=== PATIENT | female | born 1980 | race Caucasian/White ===

== ENCOUNTER 2020-02-07 13:29 | Observation (INO) ==
--- NOTE | 2020-02-07 14:29 | ERNOTE ---
Date of Service: 02/07/20 Time Seen by Provider: 02/07/20 14:08 Stated Complaint: uri,cough, been exposed, chest nata Presenting Symptoms:: cough Source: patient, RN notes reviewed, past records Exam Limitations: no limitations Immunizations: IMMUNIZATION HX Immunizations Up to Date Yes History of Influenza Vaccine No Hx Pneumococcal Vaccination No Allergies/Adverse Reactions: Allergies No Known Allergies Allergy (Verified 02/07/20 14:02) Home Medications: HOME MEDICATIONS triamcinolone acetonide 0.1 % topical cream 1 applic TP BID PRN 03/07/18 [Last Taken Unknown] montelukast 10 mg tablet 10 mg PO HS #30 tab 08/28/18 [Last Taken Unknown] albuterol sulfate 90 mcg/actuation aerosol inhaler See Rx Instructions .ROUTE .COMPLEX #8.5 unknown measurement unit code: gram 12/26/19 [Last Taken Unknown] norethindrone (contraceptive) 0.35 mg tablet 0.35 mg PO DAILY #28 tab 01/16/20 [Last Taken Unknown] omeprazole 40 mg capsule,delayed release 40 mg PO DAILY #30 cap 01/21/20 [Last Taken Unknown] propranolol 60 mg capsule,24 hr,extended release 60 mg PO DAILY #30 cap 01/21/20 [Last Taken Unknown] benzonatate 100 mg capsule 100 mg PO TID 10 Days #30 cap 01/31/20 [Last Taken Unknown] fluconazole 150 mg tablet 150 mg PO Q3D 0 Days #2 tab 01/31/20 [Last Taken Unknown] azithromycin 250 mg tablet See Rx Instructions PO .COMPLEX #6 tab 02/06/20 [Last Taken Unknown] fluconazole 150 mg tablet 150 mg PO DAILY 0 Days #1 tab 02/06/20 [Last Taken Unknown] - History of Present Ilness Narrative: Kalpana is a 39-year-old female who presents to the emergency department with a cough and shortness of breath that began over a week ago. She was seen in the clinic and prescribed steroids and Tessalon Perles. Her symptoms continued to not improve and she contacted the clinic yesterday. She was started on a Z-Peter. She has also been using her nebulizer at home without improvement. A household member has tested positive for COVID-19. Her LMP was 02/03/2020. She also reports having vomiting and diarrhea. The vomiting has mostly been associated with coughing but she reports that the diarrhea has been very frequent. She has not taken anything for diarrhea. Timing: constant, getting worse Frequency/Possible Cause: Reports: illness exposure Modifying Factors - Improves: Reports: nothing. Denies: antibiotics, albuterol, rest Modifying Factors - Worsens: Reports: activity, coughing Associated Symptoms: Reports: cough, shortness of breath, nasal congestion, nasal drainage, headache, sore throat, muscle aches, fever/chills Prior Treatment: Reports: recently seen, currently on antibiotics Review of Systems - Review of Systems Constitutional: Present: fever, chills, fatigue, malaise EYE: Absent: eye pain, eye discharge ENT: Present: nose congestion, nasal drainage, sore throat. Absent: ear pain Respiratory: Present: shortness of breath, cough, wheezing Cardiology: Absent: chest pain, syncope Gastrointestinal/Abdominal: Present: nausea, vomiting, diarrhea. Absent: abdominal pain Genitourinary: Absent: dysuria, hematuria Musculoskeletal: Present: muscle pain. Absent: joint pain Skin: Absent: rash, lesions Neurological: Present: headache. Absent: dizziness/light-headedness Endocrine: Present: no symptoms reported Hematologic/Lymphatic: Absent: easy bruising, easy bleeding Psych: Present: no symptoms reported Medical History (Last Reviewed 02/07/20 @ 14:28 by Latonia Wright NP) ADHD Onset Date: ~07/23/16 Abnormal Pap smear of cervix Onset Date: Unknown several- 3 in [id number] conization 1998-colposcopy x3 Acute hearing loss Onset Date: ~02/05/14 post traumatic left ear Acute otitis media Onset Date: ~02/05/14 Alcohol abuse Onset Date: ~08/21/13 1/2 bottle captvickie shelton twice weekly 08/2013 Asthma Onset Date: ~03/27/13 moderate persistent Bacterial vaginitis Onset Date: ~07/02/14 Bacterial vaginosis Onset Date: ~04/24/13 Breast lump Onset Date: ~11/27/13 Cellulitis of foot Onset Date: ~10/15/17 left foot and lower extremity Depressed Onset Date: Unknown Folliculitis Onset Date: ~03/15/17 GERD (gastroesophageal reflux disease) Onset Date: ~07/23/16 Genital warts Onset Date: Unknown Insomnia Onset Date: ~03/27/13 Mastitis Onset Date: ~11/27/13 TMJ (dislocation of temporomandibular joint) Onset Date: ~03/15/17 Tachycardia Onset Date: ~07/23/16 Tobacco abuse Onset Date: 03/27/13 Tobacco dependence Onset Date: Unknown Vertigo Onset Date: 02/05/14 Yeast infection Onset Date: ~02/14/15 recurrent per pt. report Yeast vaginitis Onset Date: 02/05/14 Surgical History: Surgical History (Last Reviewed 02/07/20 @ 14:28 by Latonia Wright NP) Elective Onset Date: Unknown x3 H/O breast biopsy Onset Date: 12/10/13 right breast. Tinguely-retroareolar abscess with chronic inflammation and fibrosis History of colposcopy Onset Date: 01/28/99 01/28/1999, 04/21/2009, 2003 History of conization of cervix Onset Date: 02/17/99 History of incision and drainage Onset Date: ~2011 left breast History of tubal ligation Onset Date: ~2007 Family History: Family History (Last Reviewed 02/07/20 @ 14:28 by Latonia Wright NP) Sister Brain tumor removed at age 8 History of open heart surgery Multiple sclerosis Diabetes Myocardial infarction Father , age 54-multiple problems Cancer liver Diabetes Liver failure Hepatitis C Alcoholism Asthma Grandmother Cancer Breast- mastectomy Mother Hypertension Social History: (Last Reviewed 02/07/20 @ 14:28 by Latonia Wright NP) Social History: residential: No Marital status: household members: spouse, children number of children: 2 current occupational status: unemployed current occupational exposures/hazards: No Highest education level completed: high school graduate Service: No Tobacco: Smoking Status: Current every day smoker tobacco type: cigarettes Smoking cigarettes per day: 20 Alcohol: alcohol intake: current alcohol intake frequency: a few times a week Substance Use: substance use type: does not use Dietary Habits: caffeine: Yes caffeine comment: 3/week Exercise: frequency: other Personal Safety: victim of physical abuse: No victim of emotional abuse: No Physical Exam - Physical Exam General Appearance: Present: wd/wn, alert, mild distress Head Exam: Present: normal inspection Eye Exam: Normal inspection: bilateral Ears, Nose, Throat: Present: nasal congestion, pharyngeal erythema. Absent: abnormal TM (R), abnormal TM (L), pharyngeal swelling, dry mucous membranes Neck: Present: normal inspection, nontender, supple, full range of motion Respiratory: Present: no respiratory distress, accessory muscle use - mild dyspnea while talking, expiration (prolonged), wheezing Cardiovascular/Chest: Present: regular rate, rhythm, no murmur Extremity Exam: Present: normal inspection, normal range of motion, no edema Neurological Exam: Present: alert, oriented, normal mood/affect, no motor/sensory deficits Skin Exam: Present: normal color, warm/dry Progress - Results and Orders Patient's Lab Results:: I have reviewed the patient's lab results. - Vital Signs Patient's Vital Signs:: I have reviewed the patient's vital signs. Vital Signs: Vital Signs 02/07/20 14:00 Temperature 36.8 C Pulse Rate 94 Respiratory Rate 15 Blood Pressure 146/100 H O2 Sat by Pulse Oximetry 98 - EKG EKG #1 EKG: NSR EKG read: Reviewed by me - X-Ray X-Ray #1 X-Ray: chest Interpretation: Reviewed by me X-ray Comments: Technique: Portable AP view the chest is compared to prior examination(s) dated March 14, 2018. Findings: The lungs are clear bilaterally. No consolidation, pleural effusion or pneumothorax. Cardiac silhouette and pulmonary vasculature are normal for portable technique. The osseous structures are normal. IMPRESSION: NORMAL PORTABLE CHEST. Electronically signed by Isidoro Ragland D.O.. - Progress/Reassessment Chief Complaint: Upper Respiratory Symptoms Progress:: Unchanged Plan - Plan Plan: The patient is hyponatremic with a potassium of 2.5, likely due to her vomiting and diarrhea. It was highly suspicious that her cough could be due to COVID-19 as she has a positive household contact but this was negative. It is doubtful that she will be able to tolerate oral potassium replacement. Dr. Jalloh was contacted and she will be admitted to observation status for potassium replacement and monitoring. Departure Clinical Impression: Acute hypokalemia - Departure Disposition: Still a patient Condition: Stable
[2020-02-07 14:57] LABS: Hemoglobin 11.2 gm/dL (12.5-16.0); Mean Cell Volume 100.9 fl (78-100); Mean Corpuscular Hemoglobin 35.3 pg (27-31); Mean Platelet Volume 8.8 fl (8-12.5); Platelet Count 305 K/mm3 (150-450); Red Blood Count 3.17 M/mm3 (4.2-5.4); Red Cell Distribution Width 15.3 % (11.5-14.0); White Blood Count 12.1 K/mm3 (4.0-10.5)
[2020-02-07 15:04] LABS: Total Cells Counted 100
[2020-02-07 15:14] LABS: Albumin * 2.8 gm/dl (3.4-5.0); Anion Gap 14.5 mmol/L (6.8-13.8); BUN/Creatinine Ratio 25.8 (9.0-21.6); Bilirubin, Total 0.2 mg/dL (0.0-1.1); Ca. Corrected For Albumin 8.5 mg/dL (8.4-10.2); Calcium * 7.9 mg/dL (7.9-10.9); Total Protein 5.6 gm/dL (6.2-8.2)
[2020-02-07 15:24] LABS: Potassium 2.5 mmol/L (3.4-4.6)
[2020-02-07 15:34] LABS: Lymphocyte 63 % (20-51); Monocyte 2 % (0-9); Neutrophil 35 % (42-75); Neutrophil # 4.2 K/mm3 (1.3-6.0)
[2020-02-07 15:36] LABS: Anisocytosis 2+; Platelet Estimate Normal (NORMAL); Toxic Granulation 1+
[2020-02-07] MEDS ORDERED: NORMAL SALINE 1,000 ML IV ONE ×2 (16:49→17:46)
[2020-02-07] MEDS ORDERED: POTASSIUM CHLORIDE IN WATER 100 ML IV ONE (16:49)
[2020-02-07] MEDS ORDERED: ALBUTEROL SULFATE/IPRATROPIUM 3 ML NEBU IH ONE ×2 (17:16→17:17)
[2020-02-07] MEDS ORDERED: ONDANSETRON HCL/PF 2 MG/ML VIAL IV PRN (17:47)
[2020-02-07] MEDS: ACETAMINOPHEN 325 MG TABLET PO PRN ×2 (17:50→22:19)
[2020-02-07] MEDS ORDERED: AZITHROMYCIN 250 MG TABLET PO NR (18:00)
[2020-02-07] MEDS ORDERED: ALBUTEROL SULFATE 200 PUFF INHALER IH PRN (18:00)
[2020-02-07] MEDS: ALBUTEROL SULFATE/IPRATROPIUM 3 ML NEBU IH SCH ×2 (18:18→22:08)
--- NOTE | 2020-02-07 18:27 | HP ---
Chief Complaint - Chief Complaint Date of Service: 02/07/20 Time of Service: 18:15 Chief Complaint: I have have cough shortness of breath, and later developed diarrhea and vomiting. I just do not feel well. History of Present Illness: 39-year-old female with past medical history of hypertension, ADHD, COPD, nicotine dependence, and GERD was evaluated in the ER due to worsening shortness of breath and persistent cough for more than a week's duration. Patient was seen in walk-in clinic for her symptoms and was prescribed oral steroids and inhalers but says her symptoms persisted. She was then prescribed p.o. azithromycin to cover for upper respiratory infection such as bronchitis which she has a long history of recurrence of. However she reports this morning when she woke up she did not feel well and felt weak. She reports for more than 2 weeks she has been having diarrhea or loose stools and due to her persistent coughing she vomits. Patient reports poor oral intake since her vomiting started. She she says she thinks she might of had fever at one point but did not take her temperature with a thermometer. The patient was afebrile when she arrived to the ER. She became concerned enough to come to the ER especially since her partner was recently diagnosed with COVID-19. Once in the ER she was tested for the virus but was found to be negative. Patient's chest x-ray was negative for any acute findings and labs done in the ER demonstrated significant hypokalemia most likely secondary to her vomiting and diarrhea. Medical History (Last Reviewed 02/07/20 @ 14:28 by Latonia Wright NP) ADHD Onset Date: ~07/23/16 Abnormal Pap smear of cervix Onset Date: Unknown several- 3 in [id number] conization 1998-colposcopy x3 Acute hearing loss Onset Date: ~02/05/14 post traumatic left ear Acute otitis media Onset Date: ~02/05/14 Alcohol abuse Onset Date: ~08/21/13 1/2 bottle captain peoples twice weekly 08/2013 Asthma Onset Date: ~03/27/13 moderate persistent Bacterial vaginitis Onset Date: ~07/02/14 Bacterial vaginosis Onset Date: ~04/24/13 Breast lump Onset Date: ~11/27/13 Cellulitis of foot Onset Date: ~05/05/18 left foot and lower extremity Depressed Onset Date: Unknown Folliculitis Onset Date: ~03/15/17 GERD (gastroesophageal reflux disease) Onset Date: ~07/23/16 Genital warts Onset Date: Unknown Insomnia Onset Date: ~03/27/13 Mastitis Onset Date: ~11/27/13 TMJ (dislocation of temporomandibular joint) Onset Date: ~03/15/17 Tachycardia Onset Date: ~07/23/16 Tobacco abuse Onset Date: 03/27/13 Tobacco dependence Onset Date: Unknown Vertigo Onset Date: 02/05/14 Yeast infection Onset Date: ~02/14/15 recurrent per pt. report Yeast vaginitis Onset Date: 02/05/14 Surgical History: Surgical History (Last Reviewed 02/07/20 @ 14:28 by Latonia Wright NP) Elective Onset Date: Unknown x3 H/O breast biopsy Onset Date: 12/10/13 right breast. Tinguely-retroareolar abscess with chronic inflammation and fibrosis History of colposcopy Onset Date: 01/28/99 01/28/1999, 04/21/2009, 2003 History of conization of cervix Onset Date: 02/17/99 History of incision and drainage Onset Date: ~2011 left breast History of tubal ligation Onset Date: ~2007 Family History: Family History (Last Reviewed 02/07/20 @ 14:28 by Latonia Wright NP) Sister Brain tumor removed at age 8 History of open heart surgery Multiple sclerosis Diabetes Myocardial infarction Father , age 54-multiple problems Cancer liver Diabetes Liver failure Hepatitis C Alcoholism Asthma Grandmother Cancer Breast- mastectomy Mother Hypertension Social History: (Last Reviewed 02/07/20 @ 14:28 by Latonia Wright NP) Social History: alf: No Marital status: household members: spouse, children number of children: 2 current occupational status: unemployed current occupational exposures/hazards: No Highest education level completed: high school graduate Service: No Tobacco: Smoking Status: Current every day smoker tobacco type: cigarettes Smoking cigarettes per day: 20 Alcohol: alcohol intake: current alcohol intake frequency: a few times a week Substance Use: substance use type: does not use Dietary Habits: caffeine: Yes caffeine comment: 3/week Exercise: frequency: other Personal Safety: victim of physical abuse: No victim of emotional abuse: No Peds Patient Hx - Developmental: No Pertinent Hx Peds Patient Hx - Medical: No Pertinent Hx Peds Patient Hx - Cardiac/Respiratory: Asthma Peds Patient Hx - Surgical: No Surgical History Patient History - Cancer: No Hx of Cancer Review Of Systems (GEN) - Review of Systems Generalized/Overall Review: Present: Weakness, Fever, Fatigue EENTM: Present: No Symptoms Reported Respiratory: Present: Cough, Shortness of Breath, Wheezing Cardiac: Present: No Symptoms Reported Abdominal: Present: Nausea, Vomiting, Diarrhea Genitourinary: Present: No Symptoms Reported Musculoskeletal: Present: No Symptoms Reported Neurological: Present: No Symptoms Reported Skin: Present: No Symptoms Reported Endocrine: Present: No Symptoms Reported Immunizations: IMMUNIZATION HX Immunizations Up to Date Yes History of Influenza Vaccine No Hx Pneumococcal Vaccination No Allergies/Adverse Reactions: Allergies Allergy/AdvReac Type Severity Reaction Status Date / Time No Known Allergies Allergy Verified 02/07/20 18:21 Home Medications: HOME MEDICATIONS triamcinolone acetonide 0.1 % topical cream 1 applic TP BID PRN 03/07/18 [Last Taken Unknown] montelukast 10 mg tablet 10 mg PO HS #30 tab 08/28/18 [Last Taken Unknown] albuterol sulfate 90 mcg/actuation aerosol inhaler See Rx Instructions .ROUTE .COMPLEX #8.5 unknown measurement unit code: gram 12/26/19 [Last Taken Unknown] norethindrone (contraceptive) 0.35 mg tablet 0.35 mg PO DAILY #28 tab 01/16/20 [Last Taken Unknown] omeprazole 40 mg capsule,delayed release 40 mg PO DAILY #30 cap 01/21/20 [Last Taken Unknown] propranolol 60 mg capsule,24 hr,extended release 60 mg PO DAILY #30 cap 01/21/20 [Last Taken Unknown] benzonatate 100 mg capsule 100 mg PO TID 10 Days #30 cap 01/31/20 [Last Taken Unknown] azithromycin 250 mg tablet See Rx Instructions PO .COMPLEX #6 tab 02/06/20 [Last Taken Unknown] fluconazole 150 mg tablet 150 mg PO DAILY 0 Days #1 tab 02/06/20 [Last Taken Unknown] Exam - Exam Vital Signs: Vital Signs - Last Taken Temp 36.3 C 02/07/20 16:00 Pulse 68 02/07/20 17:47 Resp 17 02/07/20 17:47 BP 161/98 H 02/07/20 17:47 Pulse Ox 96 02/07/20 17:47 Constitutional: Present: Alert, Oriented x3, Cooperative, Well developed, Well nourished, No distress ENT Exam: Present: normal ENT inspection, hearing grossly normal, pharynx normal, TMs normal Eye Exam: bilateral eye: normal inspection, PERRL, EOMI Neck: Present: non-tender, full range of motion, supple, normal inspection, trachea midline Back Exam: Present: normal inspection, no CVA tenderness, no vertebral tenderness Breasts: Present: Exam deferred, Nontender Respiratory: Present: chest non-tender, lungs clear, normal breath sounds, no respiratory distress, no accessory muscle use Cardiovascular/Chest: Present: normal peripheral pulses, regular rate, rhythm, no chest tenderness, no edema, no gallop, no JVD, no murmur, no rub Peripheral Pulses: dorsalis-pedis (R): 3+, dorsalis-pedis (L): 3+ Abdomen: Present: nondistended, no hepatospenomegaly, no masses, tender - Epigastric tenderness /Rectal: Present: Exam deferred Extremity: Present: normal range of motion, non-tender, normal inspection, no pedal edema, no calf tenderness, normal capillary refill, pelvis stable Skin Exam: Present: normal color, warm/dry, no cyanosis Lymphatic: Present: no adenopathy 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, normal cerebellar test, no motor/sensory deficits, alert, normal mood/affect, oriented x 3 Appearance: Present: appropriate appearance, appropriate insight, neat, no memory impairment Eye contact: Present: cooperative, good eye contact, normal speech Thoughts: Present: normal thought pattern, no apparent hallucination Diagnostic Studies: Abnormal Lab Results 02/07/20 02/07/20 Range/Units 14:50 14:50 WBC 12.1 H (4.0-10.5) K/mm3 RBC 3.17 L (4.2-5.4) M/mm3 Hgb 11.2 L (12.5-16.0) gm/dL Hct 32.0 L (37.0-47.0) % MCV 100.9 H (78-100) fl MCH 35.3 H (27-31) pg RDW 15.3 H (11.5-14.0) % Neutrophils % (Manual) 35 L (42-75) % Lymphocytes % (Manual) 63 H (20-51) % Lymphocytes # (Manual) 7.6 H (1.5-3.5) k/mm3 Potassium 2.5 L D (3.4-4.6) mmol/L Anion Gap 14.5 H (6.8-13.8) mmol/L BUN/Creatinine Ratio 25.8 H (9.0-21.6) Alkaline Phosphatase 39 L (50-170) U/L Total Protein 5.6 L (6.2-8.2) gm/dL Albumin 2.8 L (3.4-5.0) gm/dl Laboratory Results WBC 12.1 K/mm3 (4.0-10.5) H 02/07/20 14:50 RBC 3.17 M/mm3 (4.2-5.4) L 02/07/20 14:50 Hgb 11.2 gm/dL (12.5-16.0) L 02/07/20 14:50 Hct 32.0 % (37.0-47.0) L 02/07/20 14:50 MCV 100.9 fl (78-100) H 02/07/20 14:50 MCH 35.3 pg (27-31) H 02/07/20 14:50 MCHC 35.0 g/dl (32-36) 02/07/20 14:50 RDW 15.3 % (11.5-14.0) H 02/07/20 14:50 Plt Count 305 K/mm3 (150-450) 02/07/20 14:50 MPV 8.8 fl (8-12.5) 02/07/20 14:50 Neutrophils % (Manual) 35 % (42-75) L 02/07/20 14:50 Lymphocytes % (Manual) 63 % (20-51) H 02/07/20 14:50 Monocytes % (Manual) 2 % (0-9) 02/07/20 14:50 Neutrophils # (Manual) 4.2 K/mm3 (1.3-6.0) 02/07/20 14:50 Lymphocytes # (Manual) 7.6 k/mm3 (1.5-3.5) H 02/07/20 14:50 Monocytes # (Manual) 0.2 k/mm3 (0.0-1.0) 02/07/20 14:50 Toxic Granulation 1+ 02/07/20 14:50 Platelet Estimate Normal (NORMAL) 02/07/20 14:50 Anisocytosis 2+ 02/07/20 14:50 Sodium 141 mmol/L (132-142) 02/07/20 14:50 Plasma Sodium 141 mmol/L (130-142) 02/07/20 14:50 Potassium 2.5 mmol/L (3.4-4.6) L D 02/07/20 14:50 Chloride 103 mmol/L (97-106) 02/07/20 14:50 Carbon Dioxide 26.0 mmol/L (24-32.6) 02/07/20 14:50 Anion Gap 14.5 mmol/L (6.8-13.8) H 02/07/20 14:50 BUN 16 mg/dL (3-23) D 02/07/20 14:50 Creatinine 0.62 mg/dL (0.4-1.4) 02/07/20 14:50 Est GFR (Non-Af Amer) 114 mL/min (60-130) D 02/07/20 14:50 BUN/Creatinine Ratio 25.8 (9.0-21.6) H 02/07/20 14:50 Random Glucose 104 mg/dL (70-110) 02/07/20 14:50 Calcium 7.9 mg/dL (7.9-10.9) 02/07/20 14:50 Calcium Adj for Albumin 8.5 mg/dL (8.4-10.2) 02/07/20 14:50 Total Bilirubin 0.2 mg/dL (0.0-1.1) 02/07/20 14:50 AST 25 U/L (0-48) 02/07/20 14:50 ALT 20 U/L (19-67) 02/07/20 14:50 Alkaline Phosphatase 39 U/L (50-170) L 02/07/20 14:50 Total Protein 5.6 gm/dL (6.2-8.2) L 02/07/20 14:50 Albumin 2.8 gm/dl (3.4-5.0) L 02/07/20 14:50 SARS-CoV-2 (PCR) Not detected (ND) 02/07/20 14:55 Assessment/Plan - Narrative Narrative: Patient was evaluated and medical chart was reviewed and decision to admit for hypokalemia, generalized weakness, dehydration, and poor oral intake was made. Patient is COVID-19 test was negative so she was placed on the [facility] floor for observation and treatment. She was administered potassium in the ER and additional doses have been ordered to be administered while on the floor, CMP has been ordered for tomorrow morning for reevaluation. She was also found to have a mild leukocytosis so given the duration of her diarrhea antibiotic was added to her treatment, will also order stool cultures to rule out infectious diarrhea. Patient's breathing has improved but we will treat her with DuoNeb for her respiratory symptoms. PRN medications have been ordered to address diarrhea, nausea, and vomiting and IV hydration was ordered to rehydrate the patient. - Assessment/Plan (1) Diarrhea Problem: Acute (2) Acute hypokalemia Problem: Acute (3) Acute bronchitis Problem: Acute (4) Dehydration Problem: Acute (5) Decreased oral intake Problem: Acute (6) Leukocytosis Problem: Acute (7) Nicotine dependence Problem: Acute Qualifiers: Nicotine product type: cigarettes
[2020-02-07] MEDS: POTASSIUM CHLORIDE IN WATER 100 ML IV SCH ×4 (18:33→22:40)
[2020-02-07] MEDS: LOPERAMIDE HCL 2 MG CAPSULE PO PRN ×2 (18:36→21:23)
[2020-02-07] MEDS: LACTOBACILLUS ACIDOPHILUS 1 EACH CAPSULE PO SCH (18:55)
[2020-02-07] MEDS: CIPROFLOXACIN HCL 500 MG TABLET PO SCH (20:41)
[2020-02-07] MEDS ORDERED: MONTELUKAST SODIUM 10 MG TABLET PO SCH (21:00)
[2020-02-07] MEDS ORDERED: NORMAL SALINE 1,000 ML IV PRN (22:50)
[2020-02-08] MEDS: LOPERAMIDE HCL 2 MG CAPSULE PO PRN (01:13)
[2020-02-08] MEDS: ALBUTEROL SULFATE/IPRATROPIUM 3 ML NEBU IH SCH ×4 (02:07→15:10)
[2020-02-08] MEDS ORDERED: ALBUTEROL SULFATE 2.5 MG/0.5 ML VIAL.NEB IH PRN (06:15)
[2020-02-08 06:47] LABS: Hematocrit 31.7 % (37.0-47.0); Hemoglobin 10.8 gm/dL (12.5-16.0); Mean Cell Volume 103.6 fl (78-100); Mean Corpuscular Hemoglobin 35.3 pg (27-31); Mean Corpuscular Hgb Conc 34.1 g/dl (32-36); Mean Platelet Volume 9.5 fl (8-12.5); Platelet Count 228 K/mm3 (150-450); Red Blood Count 3.06 M/mm3 (4.2-5.4); Red Cell Distribution Width 15.3 % (11.5-14.0); White Blood Count 12.9 K/mm3 (4.0-10.5)
[2020-02-08 06:56] LABS: Albumin * 2.6 gm/dl (3.4-5.0); Anion Gap 14.7 mmol/L (6.8-13.8); BUN/Creatinine Ratio 16.2 (9.0-21.6); Bilirubin, Total 0.6 mg/dL (0.0-1.1); Calcium * 7.2 mg/dL (7.9-10.9); Carbon Dioxide 21.2 mmol/L (24-32.6); Potassium 2.9 mmol/L (3.4-4.6); Total Cells Counted 100; Total Protein 5.2 gm/dL (6.2-8.2)
[2020-02-08] MEDS ORDERED: PANTOPRAZOLE SODIUM 40 MG TABLET.EC PO SCH (07:00)
[2020-02-08 07:22] LABS: Atypical (Reactive) Lymph 1 % (0-2); Lymphocyte 47 % (20-51); Monocyte 3 % (0-9); Neutrophil 49 % (42-75); Neutrophil # 6.3 K/mm3 (1.3-6.0)
[2020-02-08 07:23] LABS: Hypersegmented Polys 1+; Platelet Estimate Normal (NORMAL)
[2020-02-08 07:24] LABS: Basophilic Stippling Trace; Macrocytosis 2+; Polychromasia Trace; Target Cells Trace
[2020-02-08] MEDS: CIPROFLOXACIN HCL 500 MG TABLET PO SCH (08:32)
[2020-02-08] MEDS: LACTOBACILLUS ACIDOPHILUS 1 EACH CAPSULE PO SCH ×2 (08:32→13:25)
[2020-02-08] MEDS: BENZONATATE 100 MG CAPSULE PO SCH ×2 (08:33→13:25)
[2020-02-08] MEDS: ACETAMINOPHEN 325 MG TABLET PO PRN (08:36)
[2020-02-08] MEDS ORDERED: POTASSIUM CHLORIDE 20 MEQ TABLET.SA PO ONE (08:42)
[2020-02-08] MEDS ORDERED: AZITHROMYCIN 250 MG TABLET PO SCH (09:00)
[2020-02-08] MEDS ORDERED: FLUCONAZOLE 150 MG TABLET PO SCH (09:00)
[2020-02-08] MEDS ORDERED: CALCIUM CARBONATE 500 MG TAB.CHEW PO SCH (09:00)
[2020-02-08] MEDS ORDERED: PROPRANOLOL HCL 60 MG CAPSULE.SA PO SCH (09:00)
[2020-02-08 13:16] LABS: Albumin * 2.8 gm/dl (3.4-5.0); Anion Gap 12.1 mmol/L (6.8-13.8); BUN/Creatinine Ratio 10.1 (9.0-21.6); Bilirubin, Total 0.6 mg/dL (0.0-1.1); Ca. Corrected For Albumin 8.2 mg/dL (8.4-10.2); Calcium * 7.6 mg/dL (7.9-10.9); Carbon Dioxide 25.5 mmol/L (24-32.6); Potassium 3.6 mmol/L (3.4-4.6); Total Protein 5.4 gm/dL (6.2-8.2)
--- NOTE | 2020-02-08 13:18 | DS ---
(1) Diarrhea Problem: Acute (2) Acute hypokalemia Problem: Resolved (3) Acute bronchitis Problem: Acute (4) Dehydration Problem: Resolved (5) Decreased oral intake Problem: Resolved (6) Leukocytosis Problem: Acute (7) Nicotine dependence Problem: Chronic Qualifiers: Nicotine product type: cigarettes Date of Discharge:: 02/08/20 Hospital Course: 39-year-old female admitted for hypokalemia, acute bronchitis, dehydration, and diarrhea was evaluated bedside and was found to be afebrile in no acute distress. Patient has shown clinical improvement, she reports improvement in her coughing and says she has less chest congestion. There has been no recurrence of fever during hospitalization and she maintained stable vitals. [facility] continued [facility] hydration and IV replacement potassium to address dehydration and hypokalemia. Labs this morning showed improvement in her potassium levels but she had to be administered an additional dose p.o. to continue improving potassium levels. F/U confirmed resolution of hypokalemia. Patient now denies any nausea or vomiting so her diet was advanced and she is tolerating without any issues. She continues with diarrhea or loose stools but says she feels an improvement. Therefore given these findings we will discharge patient with a few more days of p.o. antibiotics. She will be discharged with lab orders to reevaluate her condition and be scheduled for follow-up with myself in the intermittent clinic. Procedures Performed: none Results and Findings: Lab Pending Results 02/07/20 14:50: WBC 12.1 H, RBC 3.17 L, Hgb 11.2 L, Hct 32.0 L, MCV 100.9 H, MCH 35.3 H, MCHC 35.0, RDW 15.3 H, Plt Count 305, MPV 8.8, Neutrophils % (Manual) 35 L, Lymphocytes % (Manual) 63 H, Monocytes % (Manual) 2, Neutrophils # (Manual) 4.2, Lymphocytes # (Manual) 7.6 H, Monocytes # (Manual) 0.2, Toxic Granulation 1+, Platelet Estimate Normal, Anisocytosis 2+ 02/07/20 14:50: Sodium 141, Plasma Sodium 141, Potassium 2.5 L D, Chloride 103, Carbon Dioxide 26.0, Anion Gap 14.5 H, BUN 16 D, Creatinine 0.62, Est GFR (Non- Af Amer) 114 D, BUN/Creatinine Ratio 25.8 H, Random Glucose 104, Calcium 7.9, Calcium Adj for Albumin 8.5, Total Bilirubin 0.2, AST 25, ALT 20, Alkaline Phosphatase 39 L, Total Protein 5.6 L, Albumin 2.8 L 02/07/20 14:55: SARS-CoV-2 (PCR) Not detected 02/08/20 06:10: WBC 12.9 H, RBC 3.06 L, Hgb 10.8 L, Hct 31.7 L, MCV 103.6 H, MCH 35.3 H, MCHC 34.1, RDW 15.3 H, Plt Count 228, MPV 9.5, Neutrophils % (Manual) 49, Lymphocytes % (Manual) 47, Monocytes % (Manual) 3, Neutrophils # (Manual) 6.3 H, Lymphocytes # (Manual) 6.1 H, Monocytes # (Manual) 0.4, Hypersegmented Polys 1+, Atypic/Reactive Lymphs 1, Platelet Estimate Normal, Polychromasia Trace, Basophilic Stippling Trace, Macrocytosis 2+, Target Cells Trace 02/08/20 06:10: Sodium 138, Plasma Sodium 138, Potassium 2.9 L, Chloride 105, Carbon Dioxide 21.2 L, Anion Gap 14.7 H, BUN 11, Creatinine 0.68, Est GFR (Non- Af Amer) 102, BUN/Creatinine Ratio 16.2, Random Glucose 87, Calcium 7.2 L, Calcium Adj for Albumin 8.0 L, Total Bilirubin 0.6, AST 31, ALT 18 L, Alkaline Phosphatase 38 L, Total Protein 5.2 L, Albumin 2.6 L Discharge Location: Home Disposition: Home self-care Condition: Stable Face to Face Encounter completed per [facility] Guidelines: No Discharge Activity: Activity as tolerated Discharge Diet: General/regular food Referrals: Wanda Jalloh MD [Primary Care Provider] - Problem Oriented Discharge Instructions to Patient/Family: Hypokalemia, Form - Excuse from Work, School, or Physical Activity Prescriptions (Any new or edited meds): Lactobacillus Acidophilus [Bacid] 1 ea PO TID #60 cap Transmission Status: Received by [place], [place] Ciprofloxacin HCl [Cipro] 500 mg PO BID 4 Days #8 tab Transmission Status: Received by [place] Loperamide HCl [Imodium] 2 mg PO PRN PRN #30 cap PRN Reason: Diarrhea Transmission Status: Received by [facility], [place], [place] Complete Home Medications List: Complete Home Medication List: triamcinolone acetonide 0.1 % topical cream 1 applic TP BID PRN 03/07/18 montelukast 10 mg tablet 10 mg PO HS #30 tab 08/28/18 albuterol sulfate 90 mcg/actuation aerosol inhaler See Rx Instructions .ROUTE .COMPLEX #8.5 unknown measurement unit code: gram 12/26/19 norethindrone (contraceptive) 0.35 mg tablet 0.35 mg PO DAILY #28 tab 01/16/20 omeprazole 40 mg capsule,delayed release 40 mg PO DAILY #30 cap 01/21/20 propranolol 60 mg capsule,24 hr,extended release 60 mg PO DAILY #30 cap 01/21/20 benzonatate 100 mg capsule 100 mg PO TID 10 Days #30 cap 01/31/20 azithromycin 250 mg tablet See Rx Instructions PO .COMPLEX #6 tab 02/06/20 fluconazole 150 mg tablet 150 mg PO DAILY 0 Days #1 tab 02/06/20 Azithromycin [Zithromax] 250 mg PO DAILY tab 02/08/20 Ciprofloxacin HCl [Cipro] 500 mg PO BID 4 Days #8 tab 02/08/20 Lactobacillus Acidophilus [Bacid] 1 ea PO TID #60 cap 02/08/20 Loperamide HCl [Imodium] 2 mg PO PRN PRN #30 cap 02/08/20 Amb Orders for Discharge: CBC Time Frame: 4 Days, Facility: [facility], Location: Laboratory Comprehensive Metabolic Panel Time Frame: 4 Days, Facility: [facility], Location: Laboratory
[2020-02-08 18:39] VITALS: BP 134/88
== END 2020-02-08 14:25 | disposition home or self-care (01) ==
LOC: MS 13:29 → ER 13:29 → MS 17:47
PROVIDERS: ADMIT Family Medicine; ATTEND Family Medicine
DX: E87.6 Hypokalemia; E86.0 Dehydration; J20.9 Acute bronchitis, unspecified; D72.829 Elevated white blood cell count, unspecified; R19.7 Diarrhea, unspecified; F17.210 Nicotine dependence, cigarettes, uncomplicated